=== PATIENT | male | born 1935 | race Caucasian/White ===

== ENCOUNTER 2019-06-06 08:59 | Outpatient (RCR) | payer MEDICARE, MEDICAID, SELFPAY ==
[2019-06-06 09:37] LABS: Potassium 4.4 mmol/L (3.5-5.1)
== END 2019-06-17 23:59 | disposition home or self-care (01) ==
LOC: LAB 08:59
PROVIDERS: Family Provider Family Medicine; Visit Provider Nurse Practitioner Family
DX: I25.10 Atherosclerotic heart disease of native coronary artery without angina pectoris (principal)
CPT/HCPCS: 84132

== ENCOUNTER 2019-12-30 08:33 | Outpatient (CLI) | payer MEDICARE, MEDICAID, SELFPAY ==
--- NOTE | 2019-12-30 08:45 | FL_ITS ---
WS: [id number] MODIFIED BARIUM SWALLOW TECHNIQUE: Modified barium swallow with speech therapy using multiple consistencies. FLUOROSCOPY TIME: 2.9 minutes. CLINICAL INFORMATION: Other dysphagia COMPARISON: None. FINDINGS: Multiple consistencies utilized. Slightly delayed oropharyngeal phase. Penetration with thin liquids. No alvaro aspiration. Patient could not swallow barium tablet. FL/FL barium swallow modifd [id number] IMPRESSION: Penetration with thin liquids. No alvaro aspiration.
== END 2019-12-30 08:34 | disposition home or self-care (01) ==
PROVIDERS: PCP Family Medicine; Visit Provider Nurse Practitioner Family
DX: R13.19 Other dysphagia (principal)
CPT/HCPCS: 74230; 92611